=== PATIENT | female | born 2005 | race Hispanic/Latino ===

== ENCOUNTER 2025-04-03 05:39 | Emergency (ER) | payer OTHER ==
[~2025-04-03] VITALS: Ht 160 cm; Wt 68.9 kg
[2025-04-03] MEDS ORDERED: AMOX875T2 PO (06:35)
[2025-04-03] MEDS: AUGMENTIN 875 MG TAB PO ONE (06:49)
[2025-04-03] MEDS: IBUPROFEN 600 MG TAB PO ONE (06:49)
[2025-04-03 06:51] VITALS: BP 117/62; TEMP 96.7; O2SAT 98
== END 2025-04-03 06:55 | disposition home or self-care (01) ==
LOC: M ED 05:39
DX: H65.01 Acute serous otitis media, right ear (principal); J01.90 Acute sinusitis, unspecified; Z79.899 Other long term (current) drug therapy